=== PATIENT | male | born 1990 | race Two or more races ===

== ENCOUNTER 2020-01-12 15:48 | Emergency (ER) | payer OTHER ==
[~2020-01-12] VITALS: Ht 162.6 cm; Wt 49.9 kg
[~2020-01-12 15:48] MED LIST: FAMO10TA PO; PREDNISONE PO; PREDPOW63 PO
[2020-01-12 19:12] VITALS: BP 117/80
== END 2020-01-12 19:23 | disposition home or self-care (01) ==
LOC: ER 15:48
DX: S33.5XXA Sprain of ligaments of lumbar spine, initial encounter (principal); M54.16 Radiculopathy, lumbar region; M54.42 Lumbago with sciatica, left side; X50.9XXA Other and unspecified overexertion or strenuous movements or postures, initial encounter; Y93.89 Activity, other specified; Y92.89 Other specified places as the place of occurrence of the external cause; Y99.8 Other external cause status
CPT/HCPCS: 72100

== ENCOUNTER 2022-02-15 15:11 | Inpatient (IN) | payer BC, MEDICAID ==
[~2022-02-15] VITALS: Ht 162.6 cm; Wt 59.4 kg
[2022-02-15 17:00] LABS: Basophils # (auto) 0 10 ^3/uL (0-0.2); Basophils % (auto) 0.3 % (0.0-2.0); Eosinophils # (auto) 0.1 10 ^3/uL (0-0.8); Eosinophils % (auto) 0.4 % (0.0-7.0); Hematocrit 44.4 % (41.0-53.0); Hemoglobin 14.7 g/dL (13.5-17.5); Lymphocytes # (auto) 0.7 10 ^3/uL (0.4-5.4); Lymphocytes % (auto) 4.3 % (10.0-50.0); Mean Corpuscular Hgb Conc. 33.1 g/dL (32.0-36.0); Mean Corpuscular Volume 87.4 fL (80.0-100.0); Monocytes # (auto) 0.5 10 ^3/uL (0-1.3); Monocytes % (auto) 3.3 % (0.0-12.0); Neutrophils # (auto) 14.2 10 ^3/uL (1.6-8.6); Neutrophils % (auto) 91.7 % (37.0-80.0); Red Blood Cells 5.08 10^6/uL (4.5-5.90); Red Cell Distribution Width 13.6 % (11.8-14.3); White Blood Cell 15.5 10^3/uL (4.4-10.8)
[2022-02-15 17:16] LABS: Albumin 4.5 g/dL (3.4-5.0); Calcium 9.2 mg/dL (8.5-10.1); Potassium 3.4 mmol/L (3.5-5.1)
[2022-02-15 17:19] LABS: Bilirubin, Total 1.4 mg/dL (0.2-1.0)
[2022-02-15 20:59] LABS: Urine Bacteria NONE SEEN /hpf (None Seen); Urine Blood Negative /uL (Negative); Urine Mucus FEW (None Seen); Urine Specific Gravity 1.023 (1.001-1.035); Urine WBC 2 /hpf (0 - 3)
[2022-02-15] MEDS ORDERED: D5W/SOD CHLO 0.9% 1,000 ML IV SCH (21:45)
[2022-02-15] MEDS ORDERED: MORPHINE SULFATE INJ 2 MG/ml SYRG IV PRN (21:45)
[2022-02-15] MEDS ORDERED: PIPERACILLIN-TAZOB 3.375GM 100 ML IV ONE (21:45)
[2022-02-15] MEDS ORDERED: ONDANSETRON HCL 4 MG/2 ML VIAL IV PRN (21:45)
[2022-02-16] MEDS: cefTRIAXone 1GM/50ML D5W 50 ML IV SCH ×2 (00:13→08:55)
[2022-02-16] MEDS: metroNIDAZOLE 500MG/100ML 100 ML IV SCH ×3 (00:13→21:51)
[2022-02-16 04:05] LABS: Basophils # (auto) 0 10 ^3/uL (0-0.2); Basophils % (auto) 0.3 % (0.0-2.0); Eosinophils # (auto) 0 10 ^3/uL (0-0.8); Eosinophils % (auto) 0.3 % (0.0-7.0); Hematocrit 42.9 % (41.0-53.0); Hemoglobin 14.4 g/dL (13.5-17.5); Lymphocytes % (auto) 7.6 % (10.0-50.0); Mean Corpuscular Hemoglobin 29.4 pg (28.0-32.0); Mean Corpuscular Hgb Conc. 33.6 g/dL (32.0-36.0); Mean Corpuscular Volume 87.6 fL (80.0-100.0); Monocytes # (auto) 0.8 10 ^3/uL (0-1.3); Monocytes % (auto) 5.8 % (0.0-12.0); Neutrophils # (auto) 11.8 10 ^3/uL (1.6-8.6); Red Blood Cells 4.89 10^6/uL (4.5-5.90); Red Cell Distribution Width 13.7 % (11.8-14.3); White Blood Cell 13.7 10^3/uL (4.4-10.8)
[2022-02-16 04:18] LABS: Albumin 4.2 g/dL (3.4-5.0); Potassium 4.1 mmol/L (3.5-5.1)
[2022-02-16 04:21] LABS: BUN/Creatinine Ratio 14.9; Bilirubin, Total 2.6 mg/dL (0.2-1.0); Total Protein 7.8 g/dL (6.4-8.2)
[2022-02-16 08:01] LABS: INR 1.13 (0.9-1.15)
[2022-02-16] MEDS: PANTOPRAZOLE 40 MG/10 ML VIAL INJ IV SCH (10:00)
[2022-02-16] MEDS ORDERED: MIDAZOLAM HCL 2MG/2ML 2ml VIAL (1mg/ml) ONE (11:03)
[2022-02-16] MEDS ORDERED: fentaNYL CITRATE 100 MCG/2 ML VL ONE (11:03)
[2022-02-16] MEDS ORDERED: PROPOFOL 10 MG/ML 20 ML IV ONE (11:04)
[2022-02-16] MEDS ORDERED: ONDANSETRON HCL 4 MG/2 ML VIAL ONE (11:04)
[2022-02-16] MEDS ORDERED: LIDOCAINE 2% (LOCAL ANESTH.) PF 5ml SDV ONE (11:04)
[2022-02-16] MEDS ORDERED: ROCURONIUM 10MG/ML 10ML VIAL IV ONE (11:04)
[2022-02-16] MEDS ORDERED: HYDROmorphone HCL 2 MG/ML VL/or syr IV ONE (12:15)
[2022-02-16] MEDS ORDERED: ONDANSETRON HCL 4 MG/2 ML VIAL IV PRN ×2 (12:15→12:30)
[2022-02-16] MEDS ORDERED: NEOSTIGMINE 1 MG/ML INJ (10mg/10ML VIAL) ONE (12:23)
[2022-02-16] MEDS ORDERED: GLYCOPYRROLATE 0.2 MG/ML 1ML VIAL ONE (12:23)
[2022-02-16] MEDS ORDERED: HYDROmorphone HCL 2 MG/ML VL/or syr IV PRN ×2 (12:30)
[2022-02-16] MEDS ORDERED: metroNIDAZOLE 500MG/100ML 100 ML IV SCH (14:00)
[2022-02-16 14:02] VITALS: BP 98/55
[2022-02-16] MEDS: ACETAMINOPHEN/CODEINE#3 (300/30mg) TAB PO PRN (16:31)
[2022-02-16 17:00] VITALS: BP 110/62
[2022-02-16] MEDS: D5W/SOD CHL 0.45%/KCL 20MEQ 1,000 ML IV SCH ×2 (20:15→22:15)
[2022-02-16 22:00] VITALS: BP 116/81
[2022-02-17 05:00] VITALS: BP 113/70
[2022-02-17 05:37] LABS: Basophils # (auto) 0 10 ^3/uL (0-0.2); Basophils % (auto) 0.7 % (0.0-2.0); Eosinophils # (auto) 0.1 10 ^3/uL (0-0.8); Eosinophils % (auto) 1.4 % (0.0-7.0); Hematocrit 43.6 % (41.0-53.0); Hemoglobin 14.7 g/dL (13.5-17.5); Lymphocytes # (auto) 1.3 10 ^3/uL (0.4-5.4); Mean Corpuscular Hemoglobin 29.4 pg (28.0-32.0); Mean Corpuscular Hgb Conc. 33.6 g/dL (32.0-36.0); Mean Corpuscular Volume 87.5 fL (80.0-100.0); Monocytes # (auto) 0.5 10 ^3/uL (0-1.3); Monocytes % (auto) 6.3 % (0.0-12.0); Neutrophils # (auto) 5.3 10 ^3/uL (1.6-8.6); Neutrophils % (auto) 73.6 % (37.0-80.0); Red Blood Cells 4.98 10^6/uL (4.5-5.90); Red Cell Distribution Width 13.9 % (11.8-14.3); White Blood Cell 7.2 10^3/uL (4.4-10.8)
[2022-02-17 05:54] LABS: Calcium 9.1 mg/dL (8.5-10.1); Potassium 3.5 mmol/L (3.5-5.1)
[2022-02-17] MEDS: metroNIDAZOLE 500MG/100ML 100 ML IV SCH ×2 (06:04→14:00)
[2022-02-17] MEDS: D5W/SOD CHL 0.45%/KCL 20MEQ 1,000 ML IV SCH (08:15)
[2022-02-17 09:00] VITALS: BP 104/58
[2022-02-17] MEDS ORDERED: cefTRIAXone 1GM/50ML D5W 50 ML IV SCH (09:00)
[2022-02-17] MEDS ORDERED: PANTOPRAZOLE 40 MG/10 ML VIAL INJ IV SCH (10:00)
[2022-02-17] MEDS ORDERED: HYDR-4902 PO (11:41)
[2022-02-17] MEDS: PANTOPRAZOLE 40 MG/10 ML VIAL INJ IV SCH (11:41)
[2022-02-17] MEDS ORDERED: AMOX500T86 PO (11:41)
[2022-02-17] MEDS: cefTRIAXone 1GM/50ML D5W 50 ML IV SCH (11:42)
[2022-02-17 13:00] VITALS: BP 108/65
[2022-02-17 16:36] VITALS: BP 125/62
[2022-02-17] MEDS: ACETAMINOPHEN/CODEINE#3 (300/30mg) TAB PO PRN (17:51)
== END 2022-02-17 18:20 | disposition home or self-care (01) | DRG 343 ==
LOC: ER 15:11 → OVERFLOW 21:35 → CENTRAL 02-16 13:46
PROVIDERS: ADMIT Nurse Practitioner; ATTEND Internal Medicine Pulmonary Disease
PROC: 0DTJ4ZZ Resection of Appendix, Percutaneous Endoscopic Approach (ICD-10-PCS; principal; 2022-02-16 11:16)
DX: K35.80 Unspecified acute appendicitis (principal); R63.0 Anorexia; Z20.822 Contact with and (suspected) exposure to COVID-19; Z79.52 Long term (current) use of systemic steroids; Z68.22 Body mass index [BMI] 22.0-22.9, adult
CPT/HCPCS: 36415; 74176; 80048; 80053; 81001; 83690; 85025; 85610; 85730; 86850; 86900; 86901; 87426; 96365; 96366; 96368; C9113; G0378; J0696; J2001; J2250; J2405; J2543; J2704; J3490